=== PATIENT | male | born 1985 | race American Indian/Alaskan Native ===

== ENCOUNTER 2019-01-22 21:11 | Emergency (ER) | payer SELFPAY ==
[2019-01-22 21:35] VITALS: BP 129/87
--- NOTE | 2019-01-22 22:15 | Event Note ---
ED Screening Note Date of service: 01/22/19 Time: 22:12 ED Screening Note: 33 y/o male comes in for 1 week of burning with urination admits to lower abd pressure sexually active with female unprotected. Admits to penile discharge. No fevers. This initial assessment/diagnostic orders/clinical plan/treatment(s) is/are subject to change based on patients health status, clinical progression and re- assessment by fellow clinical providers in the ED. Further treatment and workup at subsequent clinical providers discretion. Patient/guardian urged not to elope from the ED as their condition may be serious if not clinically assessed and managed. Initial orders include:
[2019-01-22 23:31] LABS: Bilirubin,Urine NEG (Negative); Blood,Urine NEG (Negative); Color,Urine Yellow (Yellow); Mucus,Urine 3+ /HPF; Sperm,Urine FEW /HPF (NP)
[2019-01-22 23:34] LABS: WBC,Urine > 182.0 /HPF (0.0-6.0)
--- NOTE | 2019-01-23 00:07 | Emergency Department Report ---
ED Male HPI - General Chief complaint: Urogenital-Male Stated complaint: POSSIBLE UTI Time Seen by Provider: 01/22/19 22:11 Source: patient Mode of arrival: Ambulatory Limitations: No Limitations - History of Present Illness Initial comments: Patient is a 33-year-old male who presents to emergency room with complaints of dysuria that began a week ago. pt has associated white penile discharge. He is sexually active and did not use protection. States he did engage in anal intercourse. He denies any blisters or lesions of the penis, testicular edema, testicular pain. Denies any history of STDs in the past. He denies any allergies to medications or any medical problems. - Related Data Previous Rx's Medication Instructions Recorded Last Taken Type cephALEXin [Keflex] 500 mg PO BID 7 Days #14 capsule 01/23/19 Unknown Rx Allergies Allergy/AdvReac Type Severity Reaction Status Date / Time No Known Allergies Allergy Verified 01/23/19 00:50 ED Review of Systems ROS: Stated complaint: POSSIBLE UTI Other details as noted in HPI Comment: All other systems reviewed and negative ED Past Medical Hx - Past Medical History Previous Medical History?: No - Surgical History Past Surgical History?: No - Social History Smoking Status: Current Every Day Smoker Substance Use Type: Marijuana - Medications Home Medications: Home Medications Medication Instructions Recorded Confirmed Last Taken Type cephALEXin [Keflex] 500 mg PO BID 7 Days #14 capsule 01/23/19 Unknown Rx ED Physical Exam - General Limitations: No Limitations General appearance: alert, in no apparent distress - Head Head exam: Present: atraumatic, normocephalic - Eye Eye exam: Present: normal appearance - ENT ENT exam: Present: mucous membranes moist - Respiratory Respiratory exam: Absent: respiratory distress - exam: Present: other (pt deferred) - Neurological Exam Neurological exam: Present: alert, oriented X3 - Psychiatric Psychiatric exam: Present: normal affect, normal mood - Skin Skin exam: Present: warm, dry, intact ED Course Vital Signs 01/22/19 01/22/19 01/23/19 21:34 22:11 01:10 Temperature 98.9 F 98.9 F Pulse Rate 90 90 72 Respiratory 20 18 16 Rate Blood Pressure 129/87 Blood Pressure 129/87 [Right] O2 Sat by Pulse 98 98 97 Oximetry ED Medical Decision Making - Lab Data Lab Results 01/22/19 Range/Units Unknown Urine Color Yellow (Yellow) Urine Turbidity Cloudy (Clear) Urine pH 5.0 (5.0-7.0) Ur Specific [place] 1.032 H (1.003-1.030) Urine Protein 30 mg/dl (Negative) mg/dL Urine Glucose (UA) Neg (Negative) mg/dL Urine Ketones Tr (Negative) mg/dL Urine Blood Neg (Negative) Urine Nitrite Neg (Negative) Urine Bilirubin Neg (Negative) Urine Urobilinogen 2.0 (<2.0) mg/dL Ur Leukocyte Esterase Lg (Negative) Urine WBC (Auto) > 182.0 H (0.0-6.0) /HPF Urine RBC (Auto) 12.0 (0.0-6.0) /HPF Urine Mucus 3+ /HPF Urine Sperm Few ([employer]OMOTIVE [employer]LECT[employer]) /HPF - Medical Decision Making Patient is a 33-year-old male who presents to emergency room with complaints of dysuria that began a week ago. pt has associated white penile discharge. He is sexually active and did not use protection. States he did engage in anal intercourse. He denies any blisters or lesions of the penis, testicular edema, testicular pain. Denies any history of STDs in the past. He denies any allergies to medications or any medical problems. vitals are normal. UA shows many WBCs and large leukocyte esterase. pt given ceftriaxone and azithromycin while in the ED as pt is a young male and want to cover for G/C. pt is request ing prescription for UTI as well. advised to take medication as prescribed. Abstain from sexual intercourse for 10 days. Have partner tested and treated as well. Please be seen by the health department or a primary care clinic to have a full STD panel. Return to the emergency room for any new or worsening symptoms. Critical care attestation.: If time is entered above; I have spent that time in minutes in the direct care of this critically ill patient, excluding procedure time. ED Disposition Clinical Impression: Dysuria, Penile discharge Disposition: [id number] TO HOME OR SELFCARE Is pt being admited?: No Does the pt Need Aspirin: No Condition: Stable Instructions: Sexually Transmitted Diseases (ED), Safe Sex (ED), Dysuria (ED) Additional Instructions: take medication as prescribed. Abstain from sexual intercourse for 10 days. Have partner tested and treated as well. Please be seen by the health department or a primary care clinic to have a full STD panel. Return to the emergency room for any new or worsening symptoms. Prescriptions: cephALEXin [Keflex] 500 mg PO BID 7 Days #14 capsule Referrals: JORDANA MENDOZA MD [Primary Care Provider] - 2-3 Days [facility] [Outside] - 2-3 Days Time of Disposition: 00:11 Print Language: GE[place]GI[place]
[2019-01-23] MEDS ORDERED: ZITHROMAX PO ONE (00:45)
[2019-01-23] MEDS ORDERED: ROCEPHIN IM ONE ×2 (00:45→00:49)
[2019-01-23] MEDS ORDERED: XYLOCAINE 1% MPF 5 mL INFILTRATI ONE (00:45)
[2019-01-23] MEDS ORDERED: XYLOCAINE 1% MPF 5 mL ONE (00:49)
[2019-01-23] MEDS ORDERED: ZITHROMAX ONE (00:49)
== END 2019-01-23 01:10 | disposition home or self-care (01) ==
LOC: ED 21:11
DX: R30.0 Dysuria (principal); R36.9 Urethral discharge, unspecified; F17.200 Nicotine dependence, unspecified, uncomplicated; F12.10 Cannabis abuse, uncomplicated; Z79.899 Other long term (current) drug therapy
CPT/HCPCS: 81001; 87591; 96372; 99283; J0696